=== PATIENT | male | born 1975 | race American Indian/Alaskan Native ===

== ENCOUNTER 2019-03-16 19:24 | Observation (INO) | payer OTHER ==
--- NOTE | 2019-03-16 19:55 | Emergency Department Report ---
Blank Doc - Documentation Documentation: 43-year-old male that presents with left sided chest pain and sensation of flu tter in chest. This initial assessment/diagnostic orders/clinical plan/treatment(s) is/are subject to change based on patient's health status, clinical progression and re- assessment by fellow clinical providers in the ED. Further treatment and workup at subsequent clinical providers discretion. Patient/guardians urged not to elope from the ED as their condition may be serious if not clinically assessed and managed. Initial orders include: 1- Patient sent to MAIN ED for further evaluation and treatment 2- labs 3- EKG 4- CXR
[2019-03-16 20:52] LABS: Basophils % (Auto) 0.3 % (0.0-1.8); Eosinophils # (Auto) 0.2 K/mm3 (0.0-0.4); Eosinophils % (Auto) 2.4 % (0.0-4.3); Hematocrit 46.3 % (35.5-45.6); Hemoglobin 15.7 gm/dl (11.8-15.2); Lymphocytes # (Auto) 2.7 K/mm3 (1.2-5.4); Lymphocytes % (Auto) 28.7 % (13.4-35.0); Mean Corpuscular HGB Conc 34 % (32-34); Mean Corpuscular Volume 89 fl (84-94); Monocytes # (Auto) 0.9 K/mm3 (0.0-0.8); Monocytes % (Auto) 9.6 % (0.0-7.3); Platelet Count 218 K/mm3 (140-440); Red Blood Count 5.23 M/mm3 (3.65-5.03); Red Cell Distribution Width 13.1 % (13.2-15.2)
[2019-03-16 21:02] LABS: INR 1.02 (0.87-1.13)
[2019-03-16 21:12] LABS: Partial Thromboplastin Time 34.5 Sec. (24.2-36.6)
[2019-03-16 21:14] LABS: Alanine Aminotransferase 23 units/L (7-56); Albumin 4.9 g/dL (3.9-5); BUN/Creatinine Ratio 5; Blood Urea Nitrogen 6 mg/dL (9-20); Calcium 9.7 mg/dL (8.4-10.2); Hemolysis Index 7
--- NOTE | 2019-03-16 23:28 | Emergency Department Report ---
ED Chest Pain HPI - General Chief Complaint: Chest Pain Stated Complaint: CHEST PAIN Time Seen by Provider: 03/16/19 19:54 Source: patient Mode of arrival: Ambulatory Limitations: No Limitations - History of Present Illness Initial Comments: 43-year-old male presents to ED with complaint of chest pain 2 days. Patient describes the pain as a twitching sensation in the left chest that radiates into the left arm. Patient denies any associated shortness of breath, nausea or vomiting, diaphoresis. Patient states he has been having the same intermittent chest pain over the last 6 months, states that it is sometimes located in the midsternal area and sometimes it is left-sided. Patient reports he was referred to a visitor service assistant, which he saw 5 days ago. States he has a heart catheterization scheduled for next 03/21/19. Patient states he was hospitalized for chest pain last year, and reports having had a normal stress test at that time. Patient reports he stopped smoking one month ago. Denies drug use. 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 Complaint: chest pain -: days(s) (2) Onset: during rest Pain Location: left chest Pain Radiation: LUE Severity: moderate Severity scale (0 -10): 5 Quality: other (twitching and fluttering) Consistency: intermittent Improves With: nothing Worsens With: nothing re: denies: nausea, vomting, diaphoresis, dyspnea - Related Data Home Medications Medication Instructions Recorded Confirmed Last Taken Metoprolol [Lopressor TAB] 1 tab PO HS 03/17/19 03/17/19 Unknown Allergies Allergy/AdvReac Type Severity Reaction Status Date / Time No Known Allergies Allergy Unverified 01/30/18 17:02 Heart Score - HEART Score History: Slightly suspicious EKG: Non-specific Age: < 45 Risk factors: 1-2 risk factors Troponin: < normal limit HEART Score: 2 ED Review of Systems ROS: Stated complaint: CHEST PAIN Other details as noted in HPI Comment: All other systems reviewed and negative Constitutional: denies: chills, fever Respiratory: denies: shortness of breath Cardiovascular: chest pain, palpitations Gastrointestinal: denies: nausea, vomiting ED Past Medical Hx - Past Medical History Hx Congestive Heart Failure: No Hx Diabetes: No Hx Asthma: No - Surgical History Past Surgical History?: No - Social History Smoking Status: Former Smoker Substance Use Type: None - Medications Home Medications: Home Medications Medication Instructions Recorded Confirmed Last Taken Type Metoprolol [Lopressor TAB] 1 tab PO HS 03/17/19 03/17/19 Unknown History ED Physical Exam - General Limitations: No Limitations General appearance: alert, in no apparent distress - Head Head exam: Present: atraumatic, normocephalic - Eye Eye exam: Present: normal appearance - ENT ENT exam: Present: mucous membranes moist - Neck Neck exam: Present: normal inspection - Respiratory Respiratory exam: Present: normal lung sounds bilaterally. Absent: respiratory distress - Cardiovascular Cardiovascular Exam: Present: regular rate, normal rhythm - GI/Abdominal GI/Abdominal exam: Present: soft. Absent: distended, tenderness - Extremities Exam Extremities exam: Present: normal inspection. Absent: pedal edema, calf tenderness - Neurological Exam Neurological exam: Present: alert, oriented X3, CN II-XII intact. Absent: motor sensory deficit - Psychiatric Psychiatric exam: Present: normal affect, normal mood - Skin Skin exam: Present: warm, dry, intact, normal color ED Course Vital Signs 03/16/19 03/16/19 03/16/19 19:55 23:06 23:30 Temperature 97.9 F 98.3 F Pulse Rate 82 70 67 Respiratory 18 14 14 Rate Blood Pressure 132/88 117/43 Blood Pressure 128/90 [Left] O2 Sat by Pulse 100 100 99 Oximetry 03/17/19 03/17/19 03/17/19 00:00 00:13 00:31 Temperature Pulse Rate 68 75 71 Respiratory 14 12 16 Rate Blood Pressure 115/84 115/84 115/84 Blood Pressure [Left] O2 Sat by Pulse 100 100 99 Oximetry 03/17/19 01:01 Temperature Pulse Rate 69 Respiratory 11 L Rate Blood Pressure 115/84 Blood Pressure [Left] O2 Sat by Pulse 99 Oximetry - Consultations Consultation #1: 03/16/19 23:48 Spoke w/ Dr Youngblood, visitor service assistant. States admit for heart cath tomorrow. Keep NPO LUPE score - Lupe Score Age > 65: (0) No Aspirin use within the Past 7 Days: (0) No 3 or more CAD Risk Factors: (0) No 2 or more Angina events in past 24 hrs: (1) Yes Known CAD with more than 50% Stenosis: (0) No Elevated Cardiac Markers: (0) No ST Deviation Greater than 0.5mm: (0) No LUPE Score: 1 ED Medical Decision Making - Lab Data Result diagrams: 03/16/19 20:39 03/16/19 20:39 - EKG Data -: EKG Interpreted by Me EKG shows normal: sinus rhythm, axis, intervals, QRS complexes, ST-T waves Rate: normal - EKG Data Interpretation: no acute changes - Radiology Data Radiology results: image reviewed - Medical Decision Making 43 yo M presents to the ED with chest pain. No STEMI on EKG. Troponin negative x2. Pt scheduled to undergo heart cath next week. Spoke w/ visitor service assistant. States admit to hospitalist, will cath tomorrow. - Differential Diagnosis ACS, pericarditis, pneumonia Critical care attestation.: If time is entered above; I have spent that time in minutes in the direct care of this critically ill patient, excluding procedure time. ED Disposition Clinical Impression: Acute chest pain Disposition: DC-09 OP ADMIT IP TO THIS HOSP Is pt being admited?: Yes Condition: Stable Time of Disposition: 23:47
[2019-03-16] MEDS ORDERED: ASPIRIN 325 MG TAB PO ONE (23:46)
--- NOTE | 2019-03-17 00:21 | History and Physical Report ---
History of Present Illness History of present illness: 43 year-old man with no medical problems comes emergency room with complaints of chest pain is in the left substernal area, difficult to describe, intermittent, intensity 5/10, radiating to the left arm, he cannot identify exacerbating or relieving factors. Admits to shortness of breath with exertion. He denies nausea vomiting, diaphoresis or palpitation. Patient said he is having chest pain since May, he saw a hardwood floor layer and scheduled for cardiac cath on Thursday. He had a stress test last year which was negative Review of systems Constitutional: no weight loss, chills, fever Ears, eyes, nose, mouth and throat: no nasal congestion, no nasal discharge, no sinus pressure, no vision change, no red eye. Neck: No neck pain or rigidity. Cardiovascular: no palpitations Respiratory: no cough Gastrointestinal: no abdominal pain hematochezia Genitourinary : no frequency , no hematuria Musculoskeletal: no joint swelling or muscle ache Integumentary: no rash, no pruritis Neurological: no parathesias, no numbness, no focal weakness Endocrine: no cold or heat intolerance, no polyuria or polydipsia Hematologic/Lymphatic: no easy bruising, no easy bleeding, no gland swelling Allergic/Immunologic: no urticaria, no angioedema. PAST MEDICAL HISTORY: None PAST SURGICAL HISTORY: None SOCIAL HISTORY: No alcohol, no drugs, tobacco FAMILY HISTORY: Hypertension Medications and Allergies Allergies Allergy/AdvReac Type Severity Reaction Status Date / Time No Known Allergies Allergy Unverified 01/30/18 17:02 Home Medications Medication Instructions Recorded Confirmed Last Taken Type Famotidine [Pepcid] 20 mg PO BID #30 tablet 02/02/18 Unknown Rx Promethazine [Phenergan] 25 mg PO Q8HR PRN #20 tab 02/02/18 Unknown Rx traMADoL [Ultram 50 MG tab] 50 mg PO Q6HR PRN #10 tablet 02/02/18 Unknown Rx Exam - Physical Exam Narrative exam: Gen. appearance: Patient lying in bed, no apparent distress HEENT: Normocephalic, atraumatic, pupils equally round and reactive to light, extraocular movement intact, and no sclericterus,. No JVD or thyromegaly or nodule,neck supple, no carotid bruit ,mucous membranes moist, no exudate or erythema Heart: S1, S2, regular rate and rhythm Lungs: Clear bilaterally, breathing comfortable Abdomen: Positive bowel sounds, non-tender, nondistended, no organomegaly Extremity:no edema cyanosis, clubbing Skin: no rash, dry, warm Neuro: Oriented 3, cranial nerves II-12 intact, speech is fluent, motor and sensory intact - Constitutional Vitals: Temp Pulse Resp BP Pulse Ox 98.3 F 68 14 115/84 100 03/16/19 23:06 03/17/19 00:00 03/17/19 00:00 03/17/19 00:00 03/17/19 00:00 Results - Labs CBC & Chem 7: 03/16/19 20:39 03/16/19 20:39 Labs: Abnormal lab results 03/16/19 03/16/19 Range/Units 20:39 20:39 RBC 5.23 H (3.65-5.03) M/mm3 Hgb 15.7 H (11.8-15.2) gm/dl Hct 46.3 H (35.5-45.6) % RDW 13.1 L (13.2-15.2) % [place] % (Auto) 9.6 H (0.0-7.3) % [place] # 0.9 H (0.0-0.8) K/mm3 Chloride 96.9 L (98-107) mmol/L BUN 6 L (9-20) mg/dL Total Protein 8.7 H (6.3-8.2) g/dL - Imaging and Cardiology EKG: image reviewed Chest x-ray: image reviewed Assessment and Plan Assessment Chest pain Check cardiac enzymes, patient is scheduled for cardiac cath in the morning Start IV morphine, aspirin, IV fluid DVT prophylaxis
[2019-03-17] MEDS ORDERED: MORPHINE 2 MG/1 ML INJ IV PRN (00:27)
[2019-03-17] MEDS ORDERED: ONDANSETRON 4 MG/2 ML INJ IV PRN (00:27)
[2019-03-17] MEDS ORDERED: ACETAMINOPHEN 325 MG TAB PO PRN (00:27)
[2019-03-17] MEDS ORDERED: SODIUM CHLORIDE 0.45% 1000 ML 1,000 ML IV SCH (01:00)
[2019-03-17 06:15] LABS: Basophils % (Auto) 0.3 % (0.0-1.8); Eosinophils # (Auto) 0.2 K/mm3 (0.0-0.4); Eosinophils % (Auto) 2.2 % (0.0-4.3); Hematocrit 44.6 % (35.5-45.6); Lymphocytes # (Auto) 3.4 K/mm3 (1.2-5.4); Lymphocytes % (Auto) 34.2 % (13.4-35.0); Mean Corpuscular HGB Conc 34 % (32-34); Mean Corpuscular Volume 88 fl (84-94); Monocytes # (Auto) 0.9 K/mm3 (0.0-0.8); Monocytes % (Auto) 9.5 % (0.0-7.3); Platelet Count 197 K/mm3 (140-440); Red Blood Count 5.06 M/mm3 (3.65-5.03)
[2019-03-17 06:26] LABS: BUN/Creatinine Ratio 6; Blood Urea Nitrogen 7 mg/dL (9-20); Calcium 9.2 mg/dL (8.4-10.2); Hemolysis Index 6
[2019-03-17] MEDS: ENOXAPARIN 40 MG/0.4 ML INJ SUB-Q SCH (10:00)
[2019-03-17] MEDS ORDERED: ASPIRIN 325 MG TAB ONE (11:47)
[2019-03-17] MEDS ORDERED: HEPARIN/NS 5000 UNIT/500ML 1,000 ML IR ONE (11:50)
[2019-03-17] MEDS: ASPIRIN 325 MG TAB PO SCH (11:59)
[2019-03-17] MEDS ORDERED: SODIUM CHLORIDE 0.9% 500 ML 500 ML ONE (12:21)
[2019-03-17] MEDS: LIDOCAINE (2%) 20 MG/1 ML VIAL 20 ML MDV INFILTRATI ONE ×2 (12:31→12:56)
[2019-03-17] MEDS: MIDAZOLAM 2 MG/2 ML INJ ONE ×2 (12:31→12:54)
[2019-03-17] MEDS: fentaNYL 100 MCG/2 ML INJ ONE ×2 (12:31→12:54)
[2019-03-17] MEDS: VERAPAMIL 5 MG/2 ML INJ ONE ×2 (12:32→12:57)
[2019-03-17] MEDS: HEPARIN 10,000 UNITS/10 ML VIAL ONE ×2 (12:34→12:57)
[2019-03-17] MEDS: NITROGLYCERIN SYRINGE 3 ML ONE ×2 (12:35→12:57)
--- NOTE | 2019-03-17 12:50 | Consultation ---
History of Present Illness Consult date: 03/17/19 Consult reason: chest pain History of present illness: 43-year old male admitted with chest pain. Patient reports chest pain has been intermittent for months. He underwent an outpatient stress thallium test that reports small inferobasal ischemia. An echocardiogram reports a normal left ventricular systolic function, ejection fraction 50-55%. The patient was planned for an outpatient cardiac cath but has been admitted with worsening chest pain prior to his scheduled cath date. Cycled cardiac troponins are normal. An ECG is sinus rhythm with early repolarization changes. No acute ischemic changes. Cardiac consultation has been requested for further evaluation and management of chest pain. Medications and Allergies Allergies Allergy/AdvReac Type Severity Reaction Status Date / Time No Known Allergies Allergy Unverified 01/30/18 17:02 Home Medications Medication Instructions Recorded Confirmed Last Taken Type Metoprolol [Lopressor TAB] 1 tab PO HS 03/17/19 03/17/19 Unknown History Active Meds: Active Medications Acetaminophen (Tylenol) 650 mg PO Q4H PRN PRN Reason: Pain MILD(1-3)/Fever >100.5/JUNIOR Aspirin (Aspirin) 325 mg PO QDAY [facility] Last Admin: 03/17/19 11:59 Dose: 325 mg Documented by: Enoxaparin Sodium (Enoxaparin) 40 mg SUB-Q QDAY [facility] Sodium Chloride (Nacl 0.45% 1000 Ml) 1,000 mls @ 75 mls/hr IV DIRECT [facility] Morphine Sulfate (Morphine) 2 mg IV Q4H PRN PRN Reason: Pain, Moderate (4-6) Ondansetron HCl (Zofran) 4 mg IV Q8H PRN PRN Reason: Nausea And Vomiting Sodium Chloride (Sodium Chloride Flush Syringe 10 Ml) 10 ml IV BID [facility] Sodium Chloride (Sodium Chloride Flush Syringe 10 Ml) 10 ml IV PRN PRN PRN Reason: LINE FLUSH Physical Examination Vital Signs Temp Pulse Resp BP Pulse Ox 97.9 F 82 18 132/88 100 03/16/19 19:55 03/16/19 19:55 03/16/19 19:55 03/16/19 19:55 03/16/19 19:55 General appearance: no acute distress HEENT: Positive: PERRL Neck: Positive: trachea midline Cardiac: Positive: Reg Rate and Rhythm Lungs: Positive: Normal Breath Sounds Neuro: Positive: Grossly Intact Extremities: Absent: edema Results 03/17/19 05:53 03/17/19 05:53 Cardiac Enzymes 03/16/19 Range/Units 20:39 AST 21 (5-40) units/L Coagulation 03/16/19 Range/Units 20:39 PT 13.5 (12.2-14.9) Sec. INR 1.02 (0.87-1.13) APTT 34.5 (24.2-36.6) Sec. CBC 03/16/19 03/17/19 Range/Units 20:39 05:53 WBC 9.4 9.9 (4.5-11.0) K/mm3 RBC 5.23 H 5.06 H (3.65-5.03) M/mm3 Hgb 15.7 H 15.0 (11.8-15.2) gm/dl Hct 46.3 H 44.6 (35.5-45.6) % Plt Count 218 197 (140-440) K/mm3 Lymph # 2.7 3.4 (1.2-5.4) K/mm3 [place] # 0.9 H 0.9 H (0.0-0.8) K/mm3 Eos # 0.2 0.2 (0.0-0.4) K/mm3 Baso # 0.0 0.0 (0.0-0.1) K/mm3 Comprehensive Metabolic Panel 03/16/19 03/17/19 Range/Units 20:39 05:53 Sodium 139 137 (137-145) mmol/L Potassium 4.6 4.0 (3.6-5.0) mmol/L Chloride 96.9 L 98.4 (98-107) mmol/L Carbon Dioxide 26 25 (22-30) mmol/L BUN 6 L 7 L (9-20) mg/dL Creatinine 1.2 1.1 (0.8-1.5) mg/dL Glucose 89 83 (75-100) mg/dL Calcium 9.7 9.2 (8.4-10.2) mg/dL AST 21 (5-40) units/L ALT 23 (7-56) units/L Alkaline Phosphatase 64 (35-129) units/L Total Protein 8.7 H (6.3-8.2) g/dL Albumin 4.9 (3.9-5) g/dL Assessment and Plan - Patient Problems (1) Chest pain Current Visit: No Status: Acute Plan to address problem: Atypical chest pain abnormal MPI 11/2018: small inferobasal ischemia echocardiogram 11/2018 reports a normal left ventricular systolic function, e jection fraction 50-55%. We will proceed with cardiac catheterization for further ischemic evaluation.
--- NOTE | 2019-03-17 13:26 | Cardiac Catherization Report ---
CARDIAC CATHETERIZATION REPORT REASON FOR PROCEDURE: Chest pain. PROCEDURES: 1. Left heart catheterization. 2. Selective left and right coronary angiography. 3. Left ventricular angiography. 4. Sedation time, start 12:54, and end 13:08. DESCRIPTION OF PROCEDURE: The patient was prepped and draped in a sterile fashion after informed consent. Right radial cath site was prepped and draped after a negative Remy's test. The right radial artery was entered using Seldinger technique followed by placement of a 6-Azeri hydrophilic sheath. Routine radial cocktail was administered via the sheath. Selective left and right coronary angiography was performed using #3.5 left Tyrell and a #4 right Tyrell. Pigtail catheter was used for left ventricle angiography. The catheters were removed, sheath removed, and hemostasis achieved using a TR band. The patient was returned to the postprocedure unit in stable condition. There were no complications. FINDINGS: HEMODYNAMICS: Left ventricular end-diastolic pressure was 13, following coronary angiography. Ascending aortic pressure was 104/65. There was no significant pressure gradient on pullback across the aortic valve. CORONARY ANGIOGRAPHY: Left main coronary artery was angiographically normal. Left anterior descending artery and its diagonal branches were angiographically normal. A large ramus intermedius artery was angiographically normal. The circumflex artery was also free of significant disease. The right coronary artery was dominant and similarly angiographically normal. There was normal left ventricular systolic function with ejection fraction 55-60%. CONCLUSION: 1. Essentially, angiographically normal coronary arteries. 2. Normal left ventricular systolic function, ejection fraction 55-60%. RECOMMENDATION: Risk factor modification and medical therapy. JOB# [id number] CA/NTS
--- NOTE | 2019-03-17 13:29 | Event Note ---
Date: 03/17/19 The patient is a 43-year-old man with atypical chest pain. Serial ECGs are normal, with early repolarization changes. Serial troponin levels are normal. The patient had been previously scheduled for an outpatient cardiac catheterization to be done next week. We are asked to proceed with diagnostic cardiac catheterization at this time, indication atypical chest pain. Cardiac catheterization was completed via the right radial artery, no complications. We found angiographically normal coronary arteries, normal left ventricular systolic function, ejection fraction 55-60%. Recommendations: No further cardiac ischemic workup is indicated, patient is stable for cardiac discharge.
[2019-03-17] MEDS ORDERED: SODIUM CHLORIDE 0.9% 1000 ML 1,000 ML IV SCH (14:30)
--- NOTE | 2019-03-17 17:29 | Discharge Summary ---
Providers - Providers Date of Admission: 03/17/19 00:27 Date of discharge: 03/18/19 Attending physician: HAILEY CORTES 03/16/19 23:46 Consult to Physician [CONS] Stat Comment: Dr. Barreto spoke with Dr. 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 * Cardiac catheterization was completed via the right radial artery, no complications. We found angiographically normal coronary arteries, normal left ventricular systolic function, ejection fraction 55-60%. Discharge Diagnoses: Chest pain, stable angina Disposition: DC-01 TO HOME OR SELFCARE Time spent for discharge: 36 minutes Core Measure Documentation - Palliative Care Palliative Care/ Comfort Measures: Not Applicable - Core Measures Any of the following diagnoses?: none - VTE Discharge Requirements Deep Vein Thrombosis/Pulmonary Embolism Present on Admission: No Has pt received <5 days of overlap therapy or INR<2.0: No Anticoagulant overlap therapy prescribed at discharge: No Contraindication No Overlap Therapy order at DC: Not Indicated Exam - Physical Exam Narrative exam: Gen: WDWN, NAD, Awake, Alert, Orientated HEENT: NCAT, EOMI, PERRL, OP Clear Neck: supple, no adenopathy, no thyromegaly, no JVD CVS/Heart: RRR, normal S1S2, pulses present bilaterally Chest/Lungs: CTA B, Symmetrical chest expansion, good air entry bilaterally GI/Abdomen: soft, NTND, good bowel sounds, no guarding or rebound /Bladder: no suprapubic tenderness, no CVA or paraspinal tenderness Extermity/Skin: no c/c/e, no obvious rash MSK: FROM x 4 Neuro: CN 2-12 grossly intact, no new focal deficits Psych: calm - Constitutional Vitals: Temp Pulse Resp BP Pulse Ox 98.2 F 74 16 131/80 96 03/17/19 15:47 03/17/19 14:47 03/17/19 15:47 03/17/19 15:47 03/17/19 15:47 Plan Activity: no restrictions Diet: low salt Special Instructions: smoking cessation Follow up with: PRIMARY CARE, [Primary Care Provider] - 3-5 Days Forms: Discharge Signature Page Prescriptions: Omeprazole Magnesium [PriLOSEC Otc] 20 mg PO BID #30 tab
--- NOTE | 2019-03-17 23:52 | Progress Note ---
Assessment and Plan Assessment and plan: Patient is a 43 yo man with a history of Angina who presented with recurrent chest pains. * Cardiac catheterization was completed via the right radial artery, no complications. We found angiographically normal coronary arteries, normal left ventricular systolic function, ejection fraction 55-60%. Chest pain, stable angina s/p clean coronaries, it appears patient refuses to be discharge. Hospitalist Physical - Constitutional Vitals: Temp Pulse Resp BP Pulse Ox 98.3 F 81 17 109/68 98 03/17/19 19:53 03/17/19 19:53 03/17/19 21:34 03/17/19 19:53 03/17/19 21:55 General appearance: Present: no acute distress Results - Labs CBC & Chem 7: 03/17/19 05:53 03/17/19 05:53 Labs: Laboratory Last Values WBC 9.9 K/mm3 (4.5-11.0) 03/17/19 05:53 RBC 5.06 M/mm3 (3.65-5.03) H 03/17/19 05:53 Hgb 15.0 gm/dl (11.8-15.2) 03/17/19 05:53 Hct 44.6 % (35.5-45.6) 03/17/19 05:53 MCV 88 fl (84-94) 03/17/19 05:53 MCH 30 pg (28-32) 03/17/19 05:53 MCHC 34 % (32-34) 03/17/19 05:53 RDW 13.0 % (13.2-15.2) L 03/17/19 05:53 Plt Count 197 K/mm3 (140-440) 03/17/19 05:53 Lymph % (Auto) 34.2 % (13.4-35.0) 03/17/19 05:53 [place] % (Auto) 9.5 % (0.0-7.3) H 03/17/19 05:53 Eos % (Auto) 2.2 % (0.0-4.3) 03/17/19 05:53 Baso % (Auto) 0.3 % (0.0-1.8) 03/17/19 05:53 Lymph # 3.4 K/mm3 (1.2-5.4) 03/17/19 05:53 [place] # 0.9 K/mm3 (0.0-0.8) H 03/17/19 05:53 Eos # 0.2 K/mm3 (0.0-0.4) 03/17/19 05:53 Baso # 0.0 K/mm3 (0.0-0.1) 03/17/19 05:53 Seg Neutrophils % 53.8 % (40.0-70.0) 03/17/19 05:53 Seg Neutrophils # 5.3 K/mm3 (1.8-7.7) 03/17/19 05:53 PT 13.5 Sec. (12.2-14.9) 03/16/19 20:39 INR 1.02 (0.87-1.13) 03/16/19 20:39 APTT 34.5 Sec. (24.2-36.6) 03/16/19 20:39 Sodium 137 mmol/L (137-145) 03/17/19 05:53 Potassium 4.0 mmol/L (3.6-5.0) 03/17/19 05:53 Chloride 98.4 mmol/L (98-107) 03/17/19 05:53 Carbon Dioxide 25 mmol/L (22-30) 03/17/19 05:53 Anion Gap 18 mmol/L 03/17/19 05:53 BUN 7 mg/dL (9-20) L 03/17/19 05:53 Creatinine 1.1 mg/dL (0.8-1.5) 03/17/19 05:53 Estimated GFR > 60 ml/min 03/17/19 05:53 BUN/Creatinine Ratio 6 % 03/17/19 05:53 Glucose 83 mg/dL (75-100) 03/17/19 05:53 Calcium 9.2 mg/dL (8.4-10.2) 03/17/19 05:53 Total Bilirubin 0.60 mg/dL (0.1-1.2) 03/16/19 20:39 AST 21 units/L (5-40) 03/16/19 20:39 ALT 23 units/L (7-56) 03/16/19 20:39 Alkaline Phosphatase 64 units/L (35-129) 03/16/19 20:39 Troponin T < 0.010 ng/mL (0.00-0.029) 03/16/19 22:33 Total Protein 8.7 g/dL (6.3-8.2) H 03/16/19 20:39 Albumin 4.9 g/dL (3.9-5) 03/16/19 20:39 Albumin/Globulin Ratio 1.3 % 03/16/19 20:39 Active Medications - Current Medications Current Medications: Generic Name Dose Route Start Last Admin Trade Name Freq PRN Reason Stop Dose Admin Acetaminophen 650 mg 03/17/19 00:27 03/17/19 21:34 Tylenol PO 650 mg Q4H PRN Administration Pain MILD(1-3)/Fever >100.5/JUNIOR Aspirin 325 mg 03/17/19 10:00 03/17/19 11:59 Aspirin PO 325 mg QDAY SHANNA Administration Enoxaparin Sodium 40 mg 03/17/19 10:00 03/17/19 10:00 Enoxaparin SUB-Q Not Given QDAY SHANNA Sodium Chloride 1,000 mls @ 75 mls/hr 03/17/19 01:00 Nacl 0.45% 1000 Ml IV DIRECT SHANNA Morphine Sulfate 2 mg 03/17/19 00:27 Morphine IV Q4H PRN Pain, Moderate (4-6) Ondansetron HCl 4 mg 03/17/19 00:27 Zofran IV Q8H PRN Nausea And Vomiting Sodium Chloride 10 ml 03/17/19 10:00 03/17/19 21:35 Sodium Chloride Flush Syringe 10 Ml IV 10 ml BID SHANNA Administration Sodium Chloride 10 ml 03/17/19 00:27 Sodium Chloride Flush Syringe 10 Ml IV PRN PRN LINE FLUSH
[2019-03-18 08:57] VITALS: BP 123/72
[2019-03-18] MEDS: ASPIRIN 325 MG TAB PO SCH (11:15)
[2019-03-18] MEDS: ENOXAPARIN 40 MG/0.4 ML INJ SUB-Q SCH (11:15)
--- NOTE | 2019-03-18 13:32 | XRay Report ---
CHEST 2 VIEWS INDICATION / CLINICAL INFORMATION: Chest Pain. COMPARISON: 01/31/18 FINDINGS: SUPPORT DEVICES: None. HEART / MEDIASTINUM: No significant abnormality. LUNGS / PLEURA: No significant pulmonary or pleural abnormality. No pneumothorax. ADDITIONAL FINDINGS: No significant additional findings. IMPRESSION: 1. No acute findings. No change. Signer Name: Geronimo New MD Signed: 03/18/2019 1:28 PM Workstation Name: [id number]
== END 2019-03-18 15:00 | disposition home or self-care (01) ==
LOC: ED 19:24 → 4A 03-17 00:27
PROVIDERS: ADMIT Internal Medicine; ATTEND Internal Medicine
DX: R07.89 Other chest pain (principal); Z79.82 Long term (current) use of aspirin; Z87.891 Personal history of nicotine dependence
CPT/HCPCS: 36415; 71046; 80048; 80053; 84484; 85025; 85610; 85730; 87116; 93005; 93010; 93458; 96372; 99284; 99406; C1894; G0378; J1644; J1650; J2250; J3010; J7040; Q9967

== ENCOUNTER 2020-01-20 00:02 | Emergency (ER) | payer SELFPAY ==
[2020-01-20] MEDS ORDERED: ASPIRIN 325 MG TAB PO ONE (01:39)
--- NOTE | 2020-01-20 02:04 | XRay Report ---
CHEST 1 VIEW INDICATION / CLINICAL INFORMATION: Chest Pain. COMPARISON: 03/16/2019 FINDINGS: SUPPORT DEVICES: None. HEART / MEDIASTINUM: No significant abnormality. LUNGS / PLEURA: No significant pulmonary or pleural abnormality.. No pneumothorax. ADDITIONAL FINDINGS: No significant additional findings. IMPRESSION: 1. No acute findings. Signer Name: Kenny Barr MD Signed: 01/20/2020 1:59 AM Workstation Name: [email or web address]
[2020-01-20 02:40] LABS: Basophils % (Auto) 0.3 % (0.0-1.8); Eosinophils # (Auto) 0.3 K/mm3 (0.0-0.4); Eosinophils % (Auto) 2.9 % (0.0-4.3); Hematocrit 46.9 % (35.5-45.6); Hemoglobin 15.6 gm/dl (11.8-15.2); Lymphocytes # (Auto) 3.8 K/mm3 (1.2-5.4); Lymphocytes % (Auto) 34.9 % (13.4-35.0); Mean Corpuscular HGB Conc 33 % (32-34); Mean Corpuscular Volume 91 fl (84-94); Monocytes # (Auto) 1.3 K/mm3 (0.0-0.8); Monocytes % (Auto) 11.5 % (0.0-7.3); Platelet Count 232 K/mm3 (140-440); Red Blood Count 5.18 M/mm3 (3.65-5.03); Red Cell Distribution Width 13.8 % (13.2-15.2)
[2020-01-20 02:46] LABS: BUN/Creatinine Ratio 4; Blood Urea Nitrogen 5 mg/dL (9-20); Calcium 9.9 mg/dL (8.4-10.2); Hemolysis Index 6
[2020-01-20 06:19] VITALS: BP 144/96
--- NOTE | 2020-01-20 06:27 | Emergency Department Report ---
ED Chest Pain HPI - General Chief Complaint: Chest Pain Stated Complaint: CHEST PAIN PUI?: No Time Seen by Provider: 01/20/20 06:07 Source: patient, family Mode of arrival: Ambulatory Limitations: No Limitations - History of Present Illness Initial Comments: Patient is a 44-year-old F Romanian male with past medical history of h ypertension who is currently not on medications as well as gastritis was H. pylori positive who is presenting with 2 days of chest pain. States the pain is like a burning sensation from the epigastrium to the center chest radiating to the left. Also has some radiation to his bilateral arms. Patient states he feels some tingling in his hands bilaterally. Patient woke up out of his sleep yesterday morning with the symptoms. States he felt slightly better in the daytime but after going back to sleep symptoms returned. He denies any shortness of breath but does state the pain is 6 out of 10 when it occurs. Patient February 2019 had left heart catheterization which showed essentially normal coronary arteries. Patient denies nausea vomiting diarrhea diaphoresis. There is no exertional component to the chest pain. pt is a [employer] user - Related Data Home Medications Medication Instructions Recorded Confirmed Last Taken Metoprolol [Lopressor TAB] 1 tab PO HS 03/17/19 03/17/19 Unknown Previous Rx's Medication Instructions Recorded Last Taken Type Omeprazole Magnesium [PriLOSEC Otc] 20 mg PO BID #30 tab 03/18/19 Unknown Rx Amlodipine Besylate [Norvasc] 5 mg PO DAILY #30 tablet 01/20/20 Unknown Rx Pantoprazole [Protonix] 40 mg PO QDAY #30 tablet 01/20/20 Unknown Rx Allergies Allergy/AdvReac Type Severity Reaction Status Date / Time No Known Allergies Allergy Unverified 01/30/18 17:02 Heart Score - HEART Score History: Slightly suspicious EKG: Normal Age: < 45 Risk factors: 1-2 risk factors Troponin: < normal limit HEART Score: 1 ED Review of Systems ROS: Stated complaint: CHEST PAIN Other details as noted in HPI Comment: All other systems reviewed and negative ED Past Medical Hx - Past Medical History Previous Medical History?: Yes Hx Hypertension: Yes Hx Congestive Heart Failure: No Hx Diabetes: No Hx Asthma: No Hx COPD: No Hx HIV: No - Surgical History Past Surgical History?: No - Social History Smoking Status: Never Smoker Substance Use Type: Marijuana - Medications Home Medications: Home Medications Medication Instructions Recorded Confirmed Last Taken Type Metoprolol [Lopressor TAB] 1 tab PO HS 03/17/19 03/17/19 Unknown History Omeprazole Magnesium [PriLOSEC Otc] 20 mg PO BID #30 tab 03/18/19 Unknown Rx Amlodipine Besylate [Norvasc] 5 mg PO DAILY #30 tablet 01/20/20 Unknown Rx Pantoprazole [Protonix] 40 mg PO QDAY #30 tablet 01/20/20 Unknown Rx ED Physical Exam - General Limitations: No Limitations General appearance: alert, in no apparent distress - Head Head exam: Present: atraumatic, normocephalic - Eye Eye exam: Present: normal appearance - ENT ENT exam: Present: normal orophraynx, mucous membranes moist - Neck Neck exam: Present: normal inspection - Respiratory Respiratory exam: Present: normal lung sounds bilaterally. Absent: respiratory distress, wheezes, rales, rhonchi - Cardiovascular Cardiovascular Exam: Present: regular rate, normal rhythm, normal heart sounds. Absent: systolic murmur, diastolic murmur, rubs, gallop - GI/Abdominal GI/Abdominal exam: Present: soft, normal bowel sounds. Absent: distended, tenderness, guarding - Rectal Rectal exam: Present: deferred - Extremities Exam Extremities exam: Present: normal inspection - Back Exam Back exam: Present: normal inspection - Neurological Exam Neurological exam: Present: alert, oriented X3 - Psychiatric Psychiatric exam: Present: normal affect, normal mood - Skin Skin exam: Present: warm, dry, intact, normal color. Absent: rash ED Course Vital Signs 01/20/20 01/20/20 01/20/20 01:40 04:14 06:00 Temperature 98.4 F Pulse Rate 79 74 68 Respiratory 20 20 17 Rate Blood Pressure 180/111 Blood Pressure 149/91 106/68 [Right] O2 Sat by Pulse 98 98 98 Oximetry 01/20/20 06:18 Temperature Pulse Rate 74 Respiratory 18 Rate Blood Pressure Blood Pressure 144/96 [Right] O2 Sat by Pulse 100 Oximetry ULPE score - Lupe Score Age > 65: (0) No Aspirin use within the Past 7 Days: (0) No 3 or more CAD Risk Factors: (0) No 2 or more Angina events in past 24 hrs: (1) Yes Known CAD with more than 50% Stenosis: (0) No Elevated Cardiac Markers: (0) No ST Deviation Greater than 0.5mm: (0) No LUPE Score: 1 ED Medical Decision Making - Lab Data Result diagrams: 01/20/20 01:57 01/20/20 01:57 Labs 01/20/20 01/20/20 01/20/20 01:57 01:57 04:24 WBC 10.9 RBC 5.18 H Hgb 15.6 H Hct 46.9 H MCV 91 MCH 30 MCHC 33 RDW 13.8 Plt Count 232 Lymph % (Auto) 34.9 Tw[place]gs % (Auto) 11.5 H Eos % (Auto) 2.9 Baso % (Auto) 0.3 Lymph # (Auto) 3.8 [place]gs # (Auto) 1.3 H Eos # (Auto) 0.3 Baso # (Auto) 0.0 Seg Neutrophils % 50.4 Seg Neutrophils # 5.5 Sodium 135 L Potassium 4.3 Chloride 94.2 L Carbon Dioxide 27 Anion Gap 18 BUN 5 L Creatinine 1.2 Estimated GFR > 60 BUN/Creatinine Ratio 4 Glucose 89 Calcium 9.9 Troponin T < 0.010 < 0.010 - EKG Data -: EKG Interpreted by Ia EKG shows normal: sinus rhythm, axis, intervals, QRS complexes, ST-T waves Rate: normal - EKG Data Interpretation: normal EKG - Radiology Data Ordering Physician: ED MD SOHEILA Date of Service: 01/20/20 Procedure(s): XR chest 1V ap Accession Number(s): [id number] cc: ED MD SOHEILA Fluoro Time In Minutes: CHEST 1 VIEW INDICATION / CLINICAL INFORMATION: Chest Pain. COMPARISON: 03/16/2019 FINDINGS: SUPPORT DEVICES: None. HEART / MEDIASTINUM: No significant abnormality. LUNGS / PLEURA: No significant pulmonary or pleural abnormality.. No pneumothorax. ADDITIONAL FINDINGS: No significant additional findings. IMPRESSION: 1. No acute findings. Signer Name: Kenny Barr MD Signed: 01/20/2020 1:59 AM Workstation Name: [employer] - Medical Decision Making Patient has had multiple negative troponins EKG is within normal limits making [place] unlikely. Patient is symptoms are more consistent with GERD with possible anxiety component. Patient does smoke marijuana. Patient also had a elevated blood pressure on arrival which also could be factor leading to some of the patient's dizzy symptoms. Patient will be started on Protonix. Patient started on Norvasc for blood pressure control and patient be given GI for follow-up. Critical care attestation.: If time is entered above; I have spent that time in minutes in the direct care of this critically ill patient, excluding procedure time. ED Disposition Clinical Impression: GERD (gastroesophageal reflux disease), Atypical chest pain, Anxiety reaction Disposition: DC-01 TO HOME OR SELFCARE Is pt being admited?: No Does the pt Need Aspirin: No Condition: Stable Instructions: Chest Pain (ED) Referrals: [facility] [Provider Group] - 3-5 Days Time of Disposition: 06:27
== END 2020-01-20 07:00 | disposition home or self-care (01) ==
LOC: ED 00:02
DX: K21.9 Gastro-esophageal reflux disease without esophagitis (principal); F41.9 Anxiety disorder, unspecified
CPT/HCPCS: 36415; 71045; 80048; 84484; 85025; 93005